=== PATIENT | male | born 1990 | race Hispanic/Latino ===

== ENCOUNTER 2017-07-02 13:09 | Emergency (ER) | payer SELFPAY ==
[2017-07-02] MEDS ORDERED: MOTRIN PO ONE (14:57)
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
--- NOTE | 2017-07-02 16:32 | XRay Report ---
FINAL REPORT EXAM: XR CHEST ROUTINE 2V HISTORY: cough TECHNIQUE: Frontal and lateral views of the chest. PRIORS: None currently available. FINDINGS: Cardiac silhouette is within normal limits. There is no effusion. There is no pneumothorax. There is no consolidation. There are no suspicious osseous lesions. IMPRESSION: No acute cardiopulmonary findings.
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
[2017-07-02 17:55] VITALS: BP 120/60
== END 2017-07-02 17:54 | disposition home or self-care (01) ==
LOC: ED 13:09
DX: M54.5 Low back pain (principal); J00 Acute nasopharyngitis [common cold]; F17.200 Nicotine dependence, unspecified, uncomplicated; F12.10 Cannabis abuse, uncomplicated; V89.2XXA Person injured in unspecified motor-vehicle accident, traffic, initial encounter; Y93.89 Activity, other specified; Y99.8 Other external cause status; Y92.410 Unspecified street and highway as the place of occurrence of the external cause
CPT/HCPCS: 71046; 72100; 87116; 87430; 99284